=== PATIENT | male | born 1995 ===

== ENCOUNTER 2017-02-26 16:34 | Emergency (ER) | payer OTHER ==
[~2017-02-26] VITALS: Ht 167.6 cm; Wt 65.0 kg
[2017-02-26 16:36] VITALS: TEMP 36.9; Ht 167.6 cm; Wt 65.0 kg
[2017-02-26] MEDS ORDERED: ONDANSETRON INJ 2 MG/ML 2 ML VIAL IV STA (16:44)
[2017-02-26] MEDS ORDERED: SODIUM CHLORIDE 0.9% 1000ML 1,000 ML IV STA (16:44)
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
[2017-02-26] MEDS: MoRPHine SULFATE 4 MG/ML 1 ML CARP\\VIAL IV PRN ×2 (16:57→18:20)
[2017-02-26] MEDS ORDERED: OPTIRAY 320 IV PRN (17:00)
[2017-02-26 17:06] LABS: ISTAT CREATININE 0.8 mg/dl; ISTAT IONIZED CALCIUM 1.14 mmol/l
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
[2017-02-26 17:08] LABS: BASO % 0.3 %; BASO ABS # 0.03 K/uL (0-0.2); COMPLETE YES; EOS % 1.8 %; HEMATOCRIT 44.5 % (42-52); IG% 0.2 %; LYMPH ABS # 3.19 K/uL (1.2-3.4); MEAN CELL VOLUME 87.8 fL (80-100); MEAN PLATELET VOLUME 10.9 fL (7.4-10.4); MONO % 11.4 %; NEUT % 52.3 %; PLATELET COUNT 253 K/uL (130-400); RED BLOOD COUNT 5.07 M/uL (4.7-6.1); WHITE BLOOD COUNT 9.39 K/uL (4.8-10.8)
[2017-02-26 17:22] LABS: BUN/CREATININE RATIO 8.9 (10-20); CALCIUM 9.5 mg/dl (8.5-10.1); POTASSIUM 3.4 mmol/L (3.5-5.1)
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
[2017-02-26 18:18] VITALS: PULSE 63; O2SAT 99
[2017-02-26] MEDS ORDERED: OXYCODONE IR HOME PACK PO ONE (19:30)
[2017-02-26] MEDS ORDERED: OXYC1TAB3 PO (19:43)
[2017-02-26 20:17] VITALS: BP 158/78
== END 2017-02-26 20:18 | disposition home or self-care (01) ==
LOC: C.EDB 16:35 → C.EDA 20:18
DX: S42.022A Displaced fracture of shaft of left clavicle, initial encounter for closed fracture (principal); S30.1XXA Contusion of abdominal wall, initial encounter; S20.212A Contusion of left front wall of thorax, initial encounter; S70.02XA Contusion of left hip, initial encounter; V28.5XXA Motorcycle passenger injured in noncollision transport accident in traffic accident, initial encounter; Y92.410 Unspecified street and highway as the place of occurrence of the external cause